=== PATIENT | female | born 1965 | race Native Hawaiian/Other Pacific Islander ===

== ENCOUNTER → 2018-08-04 07:44 | Outpatient (CLI) | payer OTHER, SELFPAY ==
--- NOTE | 2018-08-04 | DI.MRI.S_ITS ---
PROCEDURE: MR NECK WO/W CON INDICATIONS: TEMPOROMANDIBULAR JOINT DISORDER. The patient gives a history of pain in both lower jaws, primarily on left side. TECHNIQUE: Sagittal/axial/coronal T1 spin echo and STIR. After the administration of contrast, axial/coronal/sagittal T1 fast spin echo with fat saturation through the neck. COMPARISON: None. FINDINGS: Image quality: There is susceptibility artifact from left-sided dental implants. Lymph nodes: No enlarged nodes are seen throughout the neck. Vessels: Visualized vasculature appears normal, with candace flow voids and enhancement. Neck spaces: The oropharynx, nasopharynx and pharynx are unremarkable, without mucosal lesions seen. Vocal cords, false vocal cords, pyriform sinuses, epiglottis, vallecula, and tongue base all appear normal. Extramucosal spaces of the neck also appear unremarkable. Glands: The parotid and submandibular glands appear normal. Thyroid gland demonstrates no significant MRI abnormality. Miscellaneous: Visualized brain and orbits appear normal. Lung apices appear clear. Superficial soft tissues appear normal. Visualized sinuses and mastoids appear clear. Bones: Marrow has normal overall signal. The limits of this study, no significant abnormality can be seen of the temporomandibular joints themselves. IMPRESSION: No parotid or submandibular abnormality is seen. No masses or abnormal enhancement can be seen. Dictated by: Lior Sharif M.D. on 08/04/2018 at 9:42 Approved by: Lior Sharif M.D. on 08/04/2018 at 9:50
== END ==
PROVIDERS: PCP General Practice; Referring Provider Dentist; Visit Provider General Practice
DX: M26.603 Bilateral temporomandibular joint disorder, unspecified (principal)
CPT/HCPCS: 70543

== ENCOUNTER → 2021-09-08 11:18 | Outpatient (CLI) | payer OTHER, SELFPAY ==
[2021-09-08 13:28] LABS: COVID19 -Nasal RAPID Negative (Negative)
== END ==
PROVIDERS: PCP General Practice; Visit Provider Family Medicine Sleep Medicine
DX: Z20.822 Contact with and (suspected) exposure to COVID-19 (principal)
CPT/HCPCS: 87635; C9803

== ENCOUNTER 2021-09-10 11:58 | Day surgery (SDC) | payer OTHER, SELFPAY ==
--- NOTE | 2021-09-10 12:17 | PM.HP.1 ---
History of Present Illness History of Present Illness Date Patient Seen: 09/10/21 Chief complaint: SDC Narrative: Defecatory difficulty with fecal smearing Patient History Medical History (Updated 09/10/21 @ 12:02 by Zahraa Virgen, RN) Colonoscopy planned Family history of colon cancer in father Surgical History (Updated 09/10/21 @ 12:02 by Zahraa Virgen, RN) H/O gastric sleeve Meds Home Medications and Allergies Home Medications Medication Instructions Recorded Confirmed Type calcium acetate(phosphat bind) 667 #0 04/06/17 History mg capsule multivitamin (Multiple Vitamins) 1 tab PO DAILY #0 04/06/17 History Fish Oil 1,000 mg PO DAILY 09/10/21 09/10/21 History Allergies Allergy/AdvReac Type Severity Reaction Status Date / Time No Known Drug Allergies Allergy Verified 09/10/21 12:03 Exam Narrative Exam Narrative: Oropharynx free of lesions Chest clear to auscultation percussion Cardiac exam reveals no S3 or murmur Assessment & Plan Assessment & Plan narrative: Defecatory difficulty with fecal smearing, need for colorectal cancer screening. Risks, benefits, alternatives have been explained. Time Spent With Patient Critical Care time: I spent a total of [] minutes of critical care time on this patient's care today; this time is exclusive of procedural time.
--- NOTE | 2021-09-10 12:19 | PM.OP.COLON ---
Operative Date/Time/Diagnoses Date of procedure: 09/10/21 Pre-op diagnosis: See indication and findings Procedure & Clinicians Study performed: Colonoscopy Indications: Defecatory difficulty and fecal smearing. Surgeon: Nicole Titus Procedure Notes Procedure in detail: After informed consent was obtained the patient was placed in left lateral decubitus position. The video colonoscope was introduced the rectum slowly advanced cecum. Preparation was good. On slow withdrawal mucosa was carefully examined. The scope was removed. The patient tolerated the procedure well. Blood loss none Complications none Sedation mac Findings 1. Rare diverticular openings 2. Otherwise negative colonoscopy to cecum. 3. Rectal evaluation reveals both external evaluation and retroflexed view that there seems to be very little to no sphincter anteriorly. 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 Patient has never had rectal surgery and there is no clear rectovaginal fistula. Discussed with patient follow-up with Colorectal surgery. In the meantime however she should use MiraLax 1/2 capful daily every day to try to find a consistent dose to use every day. I would use this in addition to Benefiber daily.
[2021-09-10 12:23] VITALS: BP 120/67; PULSE 59; RESP 16; TEMP 36.2; O2SAT 100; BMI 24.1
[2021-09-10] MEDS: SODIUM CHLORIDE 0.9% 1,000 ML 84 ML IV (12:34)
[2021-09-10 13:37] VITALS: BP 102/52; PULSE 58; RESP 18; TEMP 36.6; O2SAT 100
[2021-09-10 13:42] VITALS: BP 101/56; PULSE 58; RESP 16; O2SAT 100
[2021-09-10 13:47] VITALS: BP 106/57; PULSE 83; RESP 16; O2SAT 100
[2021-09-10 13:52] VITALS: BP 102/67; PULSE 62; RESP 18; TEMP 36.8; O2SAT 100
--- NOTE | 2021-09-10 13:52 | PM.OP.EGD ---
Operative Date/Time/Diagnoses Date of procedure: 09/10/21 Pre-op diagnosis: See indication and findings Procedure & Clinicians Study performed: EGD Indications: Chest heaviness, nausea vomiting, possible dysphagia Surgeon: Nicole Titus Procedure Notes Procedure in detail: After informed consent was obtained the patient was placed in left lateral decubitus position. The video upper scope was placed into the oropharynx with the patient will swelled in the esophagus. The esophagus stomach and duodenum were carefully examined. On withdrawal retroflexed view the GE junction was performed. The scope was removed. The patient tolerated procedure well. Blood loss none Complications none Sedation MAC Findings 1.
[2021-09-10 13:58] VITALS: BP 102/44; PULSE 64; RESP 18; TEMP 36.6; O2SAT 99
== END 2021-09-10 14:20 | disposition home or self-care (01) ==
PROVIDERS: PCP Nurse Practitioner Family; Referring Provider Internal Medicine Gastroenterology; Visit Provider Internal Medicine Gastroenterology
PROC: 0DJD8ZZ Inspection of Lower Intestinal Tract, Via Natural or Artificial Opening Endoscopic (ICD-10-PCS; CPT 45378; principal; 2021-09-10 13:00)
DX: K59.00 Constipation, unspecified (principal); R15.1 Fecal smearing; R32 Unspecified urinary incontinence; Z80.0 Family history of malignant neoplasm of digestive organs; K57.30 Diverticulosis of large intestine without perforation or abscess without bleeding; K62.89 Other specified diseases of anus and rectum
CPT/HCPCS: 45378; J2704